=== PATIENT | female | born 1990 | race Caucasian/White ===

== ENCOUNTER 2016-06-29 16:40 | Emergency (ER) | payer MEDICAID ==
[~2016-06-29] VITALS: Ht 162.6 cm; Wt 83.5 kg
[2016-06-29 16:49] VITALS: BP 123/84
== END 2016-06-29 17:37 | disposition home or self-care (01) ==
LOC: ED 16:40
DX: J20.9 Acute bronchitis, unspecified (principal)

== ENCOUNTER 2017-01-07 15:17 | Emergency (ER) | payer SELFPAY ==
[2017-01-07 18:06] VITALS: BP 118/97
== END 2017-01-07 18:06 | disposition home or self-care (01) ==
LOC: ED 15:17
DX: M62.830 Muscle spasm of back (principal); Z88.0 Allergy status to penicillin
CPT/HCPCS: 20552; J2001

== ENCOUNTER 2017-05-26 09:53 | Emergency (ER) | payer MEDICAID ==
[~2017-05-26] VITALS: Ht 162.6 cm; Wt 78.5 kg
[2017-05-26 10:05] VITALS: Ht 162.6 cm; Wt 78.5 kg
[2017-05-26 12:18] VITALS: BP 115/62
== END 2017-05-26 12:18 | disposition home or self-care (01) ==
LOC: ED 09:53
DX: J98.01 Acute bronchospasm (principal); R50.9 Fever, unspecified; Z88.0 Allergy status to penicillin
CPT/HCPCS: J2930; J7613; J7644

== ENCOUNTER 2017-09-02 16:13 | Emergency (ER) | payer MEDICAID ==
[~2017-09-02] VITALS: Ht 162.6 cm; Wt 80.8 kg
[2017-09-02 16:36] VITALS: Ht 162.6 cm; Wt 80.8 kg
[2017-09-02 19:52] VITALS: BP 130/72
== END 2017-09-02 19:52 | disposition home or self-care (01) ==
LOC: ED 16:13
DX: R05 Cough (principal); Z88.0 Allergy status to penicillin

== ENCOUNTER 2017-09-08 18:22 | Emergency (ER) | payer MEDICAID ==
[~2017-09-08] VITALS: Ht 162.6 cm; Wt 81.6 kg
[2017-09-08 18:41] VITALS: Ht 162.6 cm; Wt 81.6 kg
[2017-09-08 20:51] VITALS: BP 124/80
== END 2017-09-08 20:51 | disposition home or self-care (01) ==
LOC: ED 18:22
DX: O99.711 Diseases of the skin and subcutaneous tissue complicating pregnancy, first trimester (principal); R21 Rash and other nonspecific skin eruption; Z3A.01 Less than 8 weeks gestation of pregnancy; Z88.0 Allergy status to penicillin

== ENCOUNTER 2017-12-30 09:06 | Emergency (ER) | payer MEDICAID ==
[~2017-12-30] VITALS: Ht 162.6 cm; Wt 80.3 kg
[2017-12-30 09:09] VITALS: Ht 162.6 cm; Wt 80.3 kg
[2017-12-30 09:59] VITALS: BP 120/66
== END 2017-12-30 09:48 | disposition home or self-care (01) ==
LOC: ED 09:06
DX: B86 Scabies (principal); Z88.0 Allergy status to penicillin

== ENCOUNTER 2019-06-28 09:33 | Emergency (ER) | payer OTHER ==
[~2019-06-28] VITALS: Ht 162.6 cm; Wt 77.1 kg
[2019-06-28 10:15] VITALS: Ht 162.6 cm; Wt 77.1 kg
[2019-06-28 10:55] VITALS: BP 124/74
== END 2019-06-28 10:56 | disposition home or self-care (01) ==
LOC: ED 09:33
DX: B34.9 Viral infection, unspecified (principal); Z88.0 Allergy status to penicillin